=== PATIENT | male | born 1980 | race Caucasian/White ===

== ENCOUNTER 2020-08-14 06:23 | Outpatient (CLI) | payer BC, SELFPAY ==
--- NOTE | 2020-09-25 14:25 | WPDHOMESLEEP ---
Sleep Study - Home Unattended Date of Study: 08/14/20 Ordering Provider: SEN Araujo Interpreting Physician: Julieta Cast MD Home Sleep Study Type: Apnea Link Air Height: 1.85 m Weight: 127.006 kg Body Mass Index: 36.9 Neck Circumference (inches): 19.75 [place]: 10 Reason for Sleep Study Hypersomnia Sleep History Yunier Lozada is a 40 year old man with worsening snoring. He has also been told he has witnessed apneas. 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 He has a difficult time waking in the morning. His snoring is constantly loud enough that others complain about it. He occasionally awakens at night with heartburn, belching or coughing. He frequently awakens from sleep feeling short of breath. He occasionally has trouble sleeping with a cold. He occasionally wakes up gasping for breath during the night. He rarely has breathing problems at night observed by others. He rarely sweats excessively at night, rarely notices his heart pounding or beating irregularly at night. he rarely falls asleep during the day, rarely involuntarily, never while driving. He does not fall asleep while exerting physical effort. He does not have loss of muscle tone was strong emotion. He rarely has daytime difficulties due to excessive sleepiness. He rarely feels paralyzed on waking or falling asleep. He occasionally has vivid dreamlike scenes upon awakening or falling asleep. He is not afraid to go to sleep. He rarely has nightmares. He rarely remembers his dreams. He occasionally has racing thoughts. He rarely feels sad, depressed, or anxious. he rarely has muscular tension, rarely notices parts of his body jerking. He occasionally kicks at night. He rarely has crawling and aching feelings in his legs. He rarely has leg pain at night. He denies morning jaw pain. He rarely grinds his teeth at night. He occasionally has bothered by pain during the day. He rarely is awakened by pain at night. He occasionally wakes up feeling stiff in the morning. He rarely wakes up with sore or achy muscles. He occasionally wakes up with pain in the neck and spine. He has fatigue, feelings of panic, sexual problems, bowel disturbances and feels tense often. He wakes with morning headaches often. He had a CBC Sep 14, 2019 showing elevated hemoglobin 18.3 g/dL which suggests nighttime hypoxemia. Normal bedtime is between 9:00 p.m. and 10:00 p.m. He falls asleep instantly. He wakes up 1-3 times at night. While awake, he urinates and smokes a cigarette. He stays awake between 5 and 20 minutes. He wakes in the morning at 5:30 a.m.. On weekends, he may stay awake longer, going to bed between 10 and 11:00 p.m. and waking around 7:00 a.m.. He does not usually take naps. A short 10-15 minute nap is not refreshing. He is usually drowsy in the morning for 1 hour or longer. Habits: Tobacco 2 packs per day. Caffeine 12 oz per day. alcohol 6 per day. No recreational drugs. [facility] Past Medical History Medical History (Updated 09/25/20 @ 14:48 by Julieta Cast MD) Alcohol abuse Heartburn Hypertension Seasonal allergies Shortness of Breath Surgical History Surgical History (Updated 09/05/19 @ 10:28 by Kecia West [facility]) History of appendectomy Family History Family History (Updated 11/30/18 @ 15:24 by DOCTOR UNKNOWN) Mother Family history of malignant neoplasm Social History Social History (Updated 09/25/20 @ 14:41 by Julieta Cast MD) Smoking packs per day: 2 Smoking cigarettes per day: 40.0 Smoking status: Current every day smoker Alcohol intake: current Alcohol use details: 6 per day Substance use: never Medications Home Medications Medication Instructions Recorded Confirmed Type No Home Medications 07/24/20 History Medications: Testosterone injections started September 2019 Sleep Procedure This test was performed using 4 channel monitoring including res
[2020-09-25 14:32] VITALS: BMI 36.9
== END 2020-08-14 08:25 | disposition home or self-care (01) ==
LOC: ANHCSM 09-10 06:23
PROVIDERS: PCP Internal Medicine; Visit Provider Clinical Nurse Specialist
DX: G47.10 Hypersomnia, unspecified (principal); G47.33 Obstructive sleep apnea (adult) (pediatric)
CPT/HCPCS: 95806

== ENCOUNTER 2020-12-24 07:56 | Outpatient (CLI) | payer BC, SELFPAY | END 2020-12-24 07:57 | disposition home or self-care (01) | LOC: ANHCOVIDVC 07:57 | PROVIDERS: PCP Internal Medicine | DX: Z23 Encounter for immunization (principal) | CPT/HCPCS: 0001A; 91300 ==

== ENCOUNTER 2021-01-14 08:15 | Outpatient (CLI) | payer BC, SELFPAY | END 2021-01-14 08:16 | disposition home or self-care (01) | LOC: ANHCOVIDVC 08:15 | PROVIDERS: PCP Internal Medicine | DX: Z23 Encounter for immunization (principal) | CPT/HCPCS: 0002A; 91300 ==

== ENCOUNTER 2021-01-30 11:20 | Emergency (ER) | payer BC, SELFPAY ==
--- NOTE | ~2021-01-30 | XR_ITS ---
EXAMINATION: XR chest 1V portable DATE: 01/30/2021 12:05 INDICATION: Cough. TECHNIQUE: A single frontal view of the chest was obtained on 2 radiographs. COMPARISON: None. FINDINGS: The chest demonstrates clear lungs without pneumonia, pleural effusion, or pneumothorax. Th e heart size is normal. IMPRESSION: 1. No acute cardiopulmonary disease. Reviewed, dictated and finalized at location B.
[2021-01-30 11:32] VITALS: BP 150/80; PULSE 87; RESP 18; TEMP 36.2; O2SAT 98
[2021-01-30 12:01] VITALS: O2SAT 98
--- NOTE | 2021-01-30 12:10 | ED.URI ---
HPI - URI/Sore Throat General Chief Complaint: Upper Respiratory Infection Stated Complaint: Dr sent for chest screen Time Seen by Provider: 01/30/21 12:08 Source: patient Mode of arrival: ambulatory Limitations: no limitations History of Present Illness HPI Narrative: Patient is a 40-year-old male with a history of hypertension who presents for evaluation of continued cough with increased sputum production. He states that he has been feeling unwell over the past 3 weeks. He was initially diagnosed with sinusitis by Dr. Vicente with ENT who placed the patient on amoxicillin. After the patient failed to improve the patient was then switched to cefdinir by his primary care physician Dr. Sandhu. Patient finished his course of cefdinir and continues to feel unwell with productive cough and shortness of breath as well as wheezing. He reports myalgias and chills. At times he reports hot flashes. He denies weight loss. No history of cancer. He denies ever being diagnosed with COPD. He has a 2 pack/day smoker. He denies any drug use. No chest pain. Pt recently completed second vaccination. Related Data Home Medications Medication Instructions Recorded Confirmed testosterone cypionate 100 mg/mL 50 mg IM ONCE 11/27/20 11/27/20 intramuscular oil triamcinolone acetonide 55 mcg 1 spray INTRANASAL DAILY 11/27/20 11/27/20 nasal spray aerosol Allergies Allergy/AdvReac Type Severity Reaction Status Date / Time No Known Allergies Allergy Verified 01/30/21 11:34 Review of Systems Review of Systems: Narrative: CONSTITUTIONAL: Denies fever, reports chills and diaphoresis EYES: Denies visual changes, redness, or discharge. ENT: Reports rhinorrhea, congestion, reports left ear otalgia CARDIOVASCULAR: Denies chest pain, palpitations, or edema. RESPIRATORY: Reports cough and shortness of breath GASTROINTESTINAL: Denies abdominal pain, nausea, vomiting, or diarrhea. GENITOURINARY: Denies dysuria or hematuria. SKIN: Denies rash or itching. MUSCULOSKELETAL: Denies back pain, joint pain, reports myalgias NEUROLOGIC: Denies headache, numbness, or weakness. [facility] Past Medical History Medical History Abnormal fasting glucose Acute non-recurrent maxillary sinusitis Alcohol abuse Alcoholism BMI 36.0-36.9,adult Elevated blood pressure reading Elevated homocysteine Erectile dysfunction Heartburn Hemosiderin pigmentation of skin Hypertension Hypogonadism male Leukocytosis Mixed hyperlipidemia Polycythemia Screening for lipoid disorders Screening for metabolic disorder Seasonal allergic rhinitis Seasonal allergies Snoring Tobacco use disorder, continuous Surgical History Surgical History History of appendectomy Family History Family History Mother Family history of malignant neoplasm Grandparent Cancer Grandparent Cerebrovascular accident Grandparent Cancer Emphysema lung Social History Social History Smoking packs per day: 2 Smoking cigarettes per day: 40.0 Smoking status: Current every day smoker ( 2 packs per day for 25 years with no intention of quitting) Tobacco type: cigarettes Alcohol intake: current Drinks per week: 28 Substance use: never Substance use type: does not use Exam Narrative: Exam Narrative: GENERAL: Awake, alert, conversant HEAD: Normocephalic, atraumatic. EYES: PERRLA and EOMI. ENT: Nares clear, no rhinorrhea or epistaxis. Mucous membranes moist. Tympanic membranes are clear bilaterally without exudate. There is a small effusion in the left ear without bulging or purulence. NECK: Supple. CHEST: No respiratory distress, breathing even and non labored, patient with bilateral expiratory wheezing, coarse breath sounds upper and lower l
[2021-01-30] MEDS: ALBUTEROL SULFATE NEB 2.5 MG/0.5 ML INH 5 MG INHALATION (13:05)
[2021-01-30] MEDS: DEXAMETHASONE SOD PHOS INJ 4 MG/ML VIAL 10 MG PO (13:06)
[2021-01-30 13:08] VITALS: PULSE 69; RESP 18
[2021-01-30 13:43] LABS: Basophils Absolute Auto 0.1 K/mm3 (0.0-0.1); Basophils Percent Auto 0.9 % (0.2-1.2); Eosinophils Absolute Auto 0.1 K/mm3 (0-0.3); Eosinophils Percent Auto 0.6 % (0-4.4); Hematocrit 53.7 % (42.0-52.0); Hemoglobin 17.9 g/dL (14.0-18.0); Immature Granulocyte Absolute 0.06 K/mm3 (0.00-0.031); Immature Granulocyte Percent A 0.5 % (0-0.5); Lymphocytes Percent Auto 16.8 % (18.3-44.2); Mean Corpuscular HGB Conc 33.3 g/dl (32-36); Mean Corpuscular Hemoglobin 32.1 pg (26-34); Mean Corpuscular Volume 96.4 fl (80-100); Mean Platelet Volume 9.3 fl (7.4-10.4); Monocytes Absolute Auto 0.8 K/mm3 (0.1-0.6); Monocytes Percent Auto 6.2 % (2.6-8.5); Neutrophils Absolute Auto 9.8 K/mm3 (1.3-6.7); Platelet Count Result 315 k/mm3 (150-375); Red Blood Count 5.57 M/mm3 (4.6-6.20); Red Cell Distribution Width 13.2 % (11.5-14.5); White Blood Count 13.1 K/mm3 (4.5-10.0)
[2021-01-30 13:53] LABS: Alanine Aminotransferase 57 U/L (4-50); Albumin Level 4.4 g/dL (3.5-5.1); Alkaline Phosphatase 78 U/L (38-126); Anion Gap 4 mmol/L (8-16); Aspartate Amino Transferase 48 U/L (17-59); Bilirubin,Total 0.6 mg/dL (0.2-1.3); Blood Urea Nitrogen 16 mg/dL (9-20); Calcium 9.5 mg/dL (8.4-10.2); Carbon Dioxide 34 mmol/L (22-30); Chloride 102 mmol/L (98-107); Estimated CRCL calculation 110 ml/min; Estimated Glomerular Filt Rate > 60; Glucose 114 mg/dL (75-110); Potassium 4.7 mmol/L (3.4-5.0); Sodium 140 mmol/L (137-145)
[2021-01-30 14:01] VITALS: BP 137/87; PULSE 74; RESP 20; O2SAT 100
[2021-01-31 16:11] LABS: SARS-CoV-2 RNA PCR Negative
== END 2021-01-30 14:22 | disposition home or self-care (01) ==
PROVIDERS: Emergency Provider Emergency Medicine; PCP Family Medicine
DX: J40 Bronchitis, not specified as acute or chronic (principal); R06.2 Wheezing; Z20.822 Contact with and (suspected) exposure to COVID-19; R12 Heartburn; I10 Essential (primary) hypertension; E78.2 Mixed hyperlipidemia; F17.210 Nicotine dependence, cigarettes, uncomplicated
CPT/HCPCS: 36415; 71045; 80053; 85025; 94640; 99283; C9803; J1100; U0003; U0005

== ENCOUNTER 2021-02-12 14:57 | Outpatient (CLI) | payer BC, SELFPAY ==
--- NOTE | ~2021-02-12 | CT_ITS ---
EXAMINATION: CT sinus wo con DATE: 02/12/2021 15:13 INDICATION: Chronic sinusitis TECHNIQUE: Computed tomography (CT) of the paranasal sinuses was performed without intravenous contra st. The dose-length product was 299.51 mGy-cm. Automated exposure control and iterative reconstructio n technique were employed. COMPARISON: None FINDINGS: There is mucosal thickening of the maxillary and ethmoid sinuses. There is bilateral mastoi d effusions. Leftward nasal septal deviation. Ostiomeatal units are patent. No significant mucoperios teal reaction. IMPRESSION: 1. Moderate sinus disease primarily involving the maxillary sinuses. 2: Bilateral mastoid effusions. Reviewed, dictated and finalized at location A.
== END 2021-02-12 14:58 | disposition home or self-care (01) ==
LOC: ANHIMG 14:58
PROVIDERS: PCP Family Medicine; Visit Provider Family Medicine
DX: J32.9 Chronic sinusitis, unspecified (principal)
CPT/HCPCS: 70486

== ENCOUNTER → 2021-07-15 12:42 | Outpatient (CLI) | payer BC, SELFPAY ==
--- NOTE | ~2021-07-15 | US_ITS ---
EXAMINATION: US scrotum doppler EXAM DATE: 07/15/2021 13:05 INDICATION: Male hypogonadism. TECHNIQUE: Multiple grayscale and Doppler images of the testicles and scrotum were obtained bilateral ly. There is no prior study for comparison. FINDINGS: Right testicle measures 4.6 x 2.1 x 2.8 cm and is morphologically normal. Low resistance Doppler victor hugo w confirmed. There is no epididymal head cyst measuring 1 cm, another measuring 3 mm. There is no hy drocele or varicocele. Left testicle measures 4.5 x 2.0 x 2.7 cm and is morphologically normal. Low resistance Doppler flow confirmed. The epididymis is unremarkable. There is no hydrocele or varicocele. IMPRESSION: Unremarkable testicular/scrotal ultrasound exam. Reviewed, dictated and finalized at location A. 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
== END ==
PROVIDERS: PCP Family Medicine; Visit Provider Internal Medicine Endocrinology, Diabetes & Metabolism
DX: E29.1 Testicular hypofunction (principal)
CPT/HCPCS: 76870; 93976

== ENCOUNTER 2021-07-18 13:26 | Outpatient (CLI) | payer BC, SELFPAY ==
--- NOTE | 2021-07-18 13:30 | ECG_ITS ---
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
== END 2021-07-18 13:27 | disposition home or self-care (01) ==
LOC: ANHSURGERY 13:29
PROVIDERS: PCP Family Medicine; Visit Provider Otolaryngology
DX: F17.210 Nicotine dependence, cigarettes, uncomplicated (principal); R94.31 Abnormal electrocardiogram [ECG] [EKG]
CPT/HCPCS: 93005

== ENCOUNTER 2021-07-18 14:26 | Emergency (ER) | payer BC, SELFPAY ==
[2021-07-18] VITALS (18 sets, daily range): BP systolic 126–175; BP diastolic 82–103; PULSE 77–893; RESP 14–31; TEMP 37; O2SAT 94–99
--- NOTE | ~2021-07-18 | XR_ITS ---
XR chest 2V 07/18/2021 14:50 Indication: Chest pain Procedure: 2 view chest Comparison: 01/30/2021 Findings: Borderline heart size. Mild interstitial edema. No pleural effusion or pneumothorax. Impression: 1: Mild interstitial edema. Reviewed, dictated and finalized at location A. 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
--- NOTE | 2021-07-18 14:39 | ECG_ITS ---
Measurements Intervals [place] Rate: 86 P: 12 PA: 153 QRS: 91 QRSD: 99 T: 6 QT: 332 QTc: 399 Interpretive Statements SINUS RHYTHM RIGHT AXIS DEVIATION DELAYED PRECORDIAL R/S TRANSITION BORDERLINE ST-T WAVE ABNORMALITY- INFERIOR LEADS BORDERLINE ECG Electronically Signed On 07-18-2021 18:38:03 DIRECTOR CHECK by Teodoro Sevilla D.O.
--- NOTE | 2021-07-18 16:00 | ED.GENADULT ---
HPI - General Adult General Chief complaint: Chest Pain Stated complaint: hypertension Time Seen by Provider: 07/18/21 15:59 History of Present Illness HPI narrative: Patient is a 40-year-old male with a history of KVNG, low testosterone who comes to the ED today at the recommendation of his primary care doctor because his blood pressure was elevated in her office. She is on pressure of what the reading was but notes that it was recently checked and was in the 190s systolically. He does not have a known diagnosis of hypertension and is not on any medications for this. He has numerous complaints. He has been having frontal headaches intermittently for the last several weeks, tingling all over his body intermittently for the last several weeks. He notes that he is having dyspnea on exertion and feeling fatigued. He has chest aggravation occasionally and admits to lower extremity edema. He has been on a low testosterone supplement for quite some time now. Notes that he is establishing care with a new primary care doctor, lab work was done recently which showed several different blood counts were elevated and he was referred to a health it specialist. Related Data Home Medications Medication Instructions Recorded Confirmed triamcinolone acetonide 55 mcg 1 spray INTRANASAL . b.i.d. ml 02/06/21 07/17/21 nasal spray aerosol testosterone cypionate 200 mg IM . twice weekly 07/17/21 07/17/21 Allergies Allergy/AdvReac Type Severity Reaction Status Date / Time No Known Allergies Allergy Verified 07/18/21 16:32 Review of Systems Constitutional: Constitutional: Reports as per HPI, Denies fever(s), Denies night sweats and Denies weakness Cardiovascular: Cardiovascular: Reports as per HPI, Reports chest pain, Denies edema, Denies leg edema, Denies dyspnea and Denies orthopnea Respiratory: Respiratory: Denies cough and Reports dyspnea Gastrointestinal: Gastrointestinal: Denies abdominal pain, Denies constipation, Denies diarrhea, Denies nausea and Denies vomiting Musculoskeletal: Musculoskeletal: Denies abnormal gait, Denies back pain, Denies numbness and Denies tingling Neurologic: Denies Abnormal speech present, Denies abnormal gait, Reports headache(s), Denies numbness, Denies tingling and Denies weakness Psychiatric: Psychiatric: Denies homicidal ideation and Denies suicidal ideation Hematologic/Lymphatic: Hematologic/Lymphatic: Reports as per HPI [facility] Past Medical History Medical History (Updated 07/18/21 @ 19:23 by Bin Parisi PA-C) Abnormal fasting glucose Fasting glucose 104 with hemoglobin A1c 5.7 on 05/09/2021 Acute bronchitis Acute non-recurrent maxillary sinusitis Alcohol abuse Alcoholism BMI 36.0-36.9,adult BMI 37.0-37.9, adult Chronic depression (~07/18/21) Elevated blood pressure reading Elevated homocysteine Erectile dysfunction Heartburn Hemosiderin pigmentation of skin total iron normal at 94 with 21% saturation and ferritin normal at 80 Hypertension Hypogonadism male total testosterone 810 with free testosterone 23.1 on 05/09/2021 with DHEAS elevated at 494 Leukocytosis Mixed hyperlipidemia total cholesterol 231, triglycerides 301, HDL 26 and LDL 149 on 05/09/2021 Polycythemia hemoglobin 19.8 on 05/09/2021 Recurrent sinusitis Screening for lipoid disorders Screening for metabolic disorder Seasonal allergic rhinitis Seasonal allergies Snoring Tobacco use disorder, continuous Surgical History Surgical History History of appendectomy Family History Family History Mother Family history of malignant neoplasm Grandparent Cancer Grandparent Cerebrovascular accident Grandparent Cancer Emphysema lung Social History Social History Smoking packs per day: 2 Smoking cigarettes per day: 40.0 Year
--- NOTE | 2021-07-18 16:54 | PC.NURSE ---
Clarified with JIMY Childress. No need for aspirin at this time
[2021-07-18 17:01] LABS: Basophils Absolute Auto 0.2 K/mm3 (0.0-0.1); Basophils Percent Auto 1.1 % (0.2-1.2); Eosinophils Absolute Auto 0.3 K/mm3 (0-0.3); Hematocrit 58.5 % (42.0-52.0); Hemoglobin 20.3 g/dL (14.0-18.0); Immature Granulocyte Absolute 0.06 K/mm3 (0.00-0.031); Immature Granulocyte Percent A 0.4 % (0-0.5); Lymphocytes Absolute Auto 3.55 K/mm3 (0.9-3.2); Lymphocytes Percent Auto 23.8 % (18.3-44.2); Mean Corpuscular HGB Conc 34.7 g/dl (32-36); Mean Corpuscular Hemoglobin 33.2 pg (26-34); Mean Corpuscular Volume 95.7 fl (80-100); Mean Platelet Volume 9.5 fl (7.4-10.4); Monocytes Absolute Auto 1.5 K/mm3 (0.1-0.6); Monocytes Percent Auto 10.3 % (2.6-8.5); Neutrophils Absolute Auto 9.3 K/mm3 (1.3-6.7); Neutrophils Percent Auto 62.4 % (45.5-73.1); Platelet Count Result 238 k/mm3 (150-375); Red Blood Count 6.11 M/mm3 (4.6-6.20); Red Cell Distribution Width 14.9 % (11.5-14.5); White Blood Count 14.9 K/mm3 (4.5-10.0)
--- NOTE | 2021-07-18 17:08 | PC.NURSE ---
Called lab to add on D-dimer and BNP
[2021-07-18 17:11] LABS: INR 0.9; Partial Thromboplastin Time 28.1 SECONDS (22.3-36.8); Prothrombin Time 12.5 Seconds (11.1-14.7)
[2021-07-18 17:18] LABS: Anion Gap 9 mmol/L (8-16); Blood Urea Nitrogen 8 mg/dL (9-20); Calcium 9.7 mg/dL (8.4-10.2); Carbon Dioxide 30 mmol/L (22-30); Chloride 99 mmol/L (98-107); Estimated CRCL calculation 135 ml/min; Estimated Glomerular Filt Rate > 60; Glucose 107 mg/dL (65-110); Potassium 4.1 mmol/L (3.4-5.0); Sodium 138 mmol/L (137-145)
[2021-07-18 17:30] LABS: Troponin I < 0.012 ng/mL (0.000-0.034)
[2021-07-18 17:37] LABS: NT Pro B Type Natriuretic Pept 15 pg/mL (5-100)
[2021-07-18 17:55] LABS: D Dimer 0.25 ug/mL (<0.48)
[2021-07-18] MEDS: ACETAMINOPHEN 325 MG TABLET 650 MG PO (18:06)
[2021-07-18 18:14] LABS: Troponin I < 0.012 ng/mL (0.000-0.034)
--- NOTE | 2021-07-18 18:17 | PC.NURSE ---
Pt instructed to avoid NSAIDs for surgery on Wednesday, PA [place] aware, cancelled toradol.
== END 2021-07-18 19:45 | disposition home or self-care (01) ==
PROVIDERS: Physician Assistant Medical; Emergency Provider Emergency Medicine; PCP Family Medicine
DX: R07.9 Chest pain, unspecified (principal); R03.0 Elevated blood-pressure reading, without diagnosis of hypertension; R06.02 Shortness of breath; R51.9 Headache, unspecified; G47.33 Obstructive sleep apnea (adult) (pediatric); F32.A Depression, unspecified; E78.2 Mixed hyperlipidemia; F17.210 Nicotine dependence, cigarettes, uncomplicated; Z87.09 Personal history of other diseases of the respiratory system
CPT/HCPCS: 36415; 71046; 80048; 83880; 84484; 85025; 85380; 85610; 85730; 93005; 99284; A9270

== ENCOUNTER 2021-07-21 00:29 | Day surgery (SDC) | payer BC, SELFPAY ==
[2021-07-17 14:43] VITALS: BMI 38.4
--- NOTE | 2021-07-17 15:01 | PC.NURSE ---
Addendum entered by Cassidy Mejía RN 07/17/21 15:38: PT TO STOP TAKING IBUPROFEN PER DR. CEDILLO'S INSTRUCTIONS Original Note: Report to the Outpatient Waiting Room, entrance under the [facility] located off [facility], at time 7:00 on date 07/21/21. OR Time: 9:00. - You and your visitor will be asked a series of questions to screen for COVID 19 for your protection. - A mask is required within the hospital. - Only one visitor is allowed at this time. Patient visitors will be guided where to wait when not with patient. Preoperative COVID Testing Requirements: No COVID Test needed if: (proof is required; if not received patient will have Rapid Test prior to entry) - Patient has received COVID Vaccine at least 14 days prior to procedure date or - Patient has positive COVID test result within last 90 days of surgery date. COVID Test needed if above criteria is not met If not COVID vaccinated a COVID test must be conducted within 72 hours of surgery and patient is asked to isolate self from time of testing until procedure. You will go to the [facility] for your COVID testing. The [facility] site is located at the corner of [address] [facility]. You will only be called if COVID results are positive and your surgeon may reschedule your elective surgery date. Patients may have clear liquids (water, carbonated beverages, clear teas, apple juice) until 3 hours prior to surgery with a maximum of 20 ounces. - No food from midnight until time of surgery - Infants may have breast milk until 4 hours before surgery, formula 6 hours prior to surgery. - Children will be allowed to drink immediately following surgery. If applicable, please bring a bottle or sippy cup to assist with drinking. Juice, water, soda, and popsicles are readily available. For infants on formula, please bring formula the day of surgery. Pacifiers are allowed. Take the following medications with a SIP of water the morning of surgery: INHALER (IF NEEDED, AND BRING WITH YOU) Medications to discontinue per physician: N/A Date to take last dose: N/A Please no make-up, nail amharic, hairspray, perfume, deodorant, or body powder the day of surgery. No jewelry (including any body piercings) or valuables the day of surgery, leave them at home. Please take a shower or bath the night before, or the morning of, surgery with an antibacterial soap. Wear comfortable, loose fitting clothing. Children are encouraged to wear pajamas. - Jewelry must be removed prior to entering the operating room. Rings and piercings that are not removed may be cut off. - The hospital will not accept responsibility for valuables. - Please leave all valuables, including medications, at home the day of surgery. If you are going home after surgery, a licensed catering driver must drive you home. - NO public transportation without another adult. - We recommend that an adult stay with you for 24 hours following discharge. - We also recommend that you do not drive, make important decision, drink alcoholic beverages, or take any drugs that were not prescribed by your health care provider for at least 24 hours after your discharge time. For Pediatric surgeries, we recommend two adults accompany the child home (only one inside the building at this time). Follow any additional instructions given to you from your surgeon. Telephone instructions given to KANDACE CHING and asked if any additional questions and then verbalized understanding. Patient advised to call surgeon office or pre surgery nurse liaison [phone] if any additional questions.
[2021-07-21] VITALS (11 sets, daily range): BP systolic 136–185; BP diastolic 79–100; PULSE 93–103; RESP 12–20; TEMP 36.5; O2SAT 90–98; BMI 38.7
--- NOTE | 2021-07-21 07:49 | WPDANESEPPF ---
Anes - Initial Pre Proc Eval Procedure: Operation Date: 07/21/21 09:00 Proposed Procedures p Septoplasty - Omar Vicente MD s Bilateral Ethmoidectomy, Bilateral Maxillary Antrostomy, Bilateral Turbinate Reduction - Omar Vicente MD Date/Time: 07/21/21 07:49 Surgeon: Omar Vicente MD Pre Op Diagnosis: Chronic Sinusitis Patient Data Age: 40 Gender: M Height: 1.85 m Weight: 132 kg Allergies Allergy/AdvReac Type Severity Reaction Status Date / Time No Known Allergies Allergy Verified 07/21/21 07:37 Home Medications Medication Instructions Recorded Confirmed Type acetaminophen 500 mg PO Q6H PRN #30 cap 01/30/21 07/17/21 Rx ibuprofen 400 mg PO TID PRN 10 Days #30 01/30/21 07/17/21 Rx tablet triamcinolone acetonide 55 mcg 1 spray INTRANASAL . b.i.d. ml 02/06/21 07/21/21 History nasal spray aerosol sildenafil 100 mg tablet 100 mg PO DAILY PRN #90 tablet 04/29/21 07/17/21 Rx albuterol sulfate 90 mcg/actuation 2 inh INHALATION QID PRN #8.5 g 07/17/21 Rx aerosol inhaler testosterone cypionate 200 mg IM . twice weekly 07/17/21 07/17/21 History bupropion HCl 150 mg 24 hr tablet, 150 mg PO QAM #30 tablet 07/18/21 Rx extended release Patient hx anesthesia problems: none Family hx anesthesia problems: none Results Review: All pre-operative results and documents have been reviewed as part of the pre-operative evaluation. [facility] Past Medical History Medical History Abnormal fasting glucose Fasting glucose 104 with hemoglobin A1c 5.7 on 05/09/2021 Acute bronchitis Acute non-recurrent maxillary sinusitis Alcohol abuse Alcoholism BMI 36.0-36.9,adult BMI 37.0-37.9, adult Chronic depression (~07/18/21) Elevated blood pressure reading Elevated homocysteine Erectile dysfunction Heartburn Hemosiderin pigmentation of skin total iron normal at 94 with 21% saturation and ferritin normal at 80 Hypertension Hypogonadism male total testosterone 810 with free testosterone 23.1 on 05/09/2021 with DHEAS elevated at 494 Leukocytosis Mixed hyperlipidemia total cholesterol 231, triglycerides 301, HDL 26 and LDL 149 on 05/09/2021 Polycythemia hemoglobin 19.8 on 05/09/2021 Recurrent sinusitis Screening for lipoid disorders Screening for metabolic disorder Seasonal allergic rhinitis Seasonal allergies Snoring Tobacco use disorder, continuous Surgical History Surgical History History of appendectomy Family History Family History Mother Family history of malignant neoplasm Grandparent Cancer Grandparent Cerebrovascular accident Grandparent Cancer Emphysema lung Social History Social History Smoking packs per day: 2 Smoking cigarettes per day: 40.0 Years smoked: 25 Smoking pack-years: 50.00 Smoking status: Current every day smoker Tobacco type: cigarettes Alcohol intake: current Drinks per week: 42 Alcohol use details: 6 TIMI AND SKI PER NIGHT Substance use: never Substance use type: does not use Living arrangements: with family Spiritual care concerns: No Anes - Eval Final PreProcedure Day of Procedure 07/21/21 07:49 Patient weight: obese Heart: regular rate and rhythm Lungs: clear to auscultation Airway: Mallampati scale class II Neurological: alert and oriented Last oral intake: >/= 8 hours ASA classification: III Emergent: no Anesthetic plan: proceed Anesthesia type and monitoring: general ETT and standard monitoring Results Review: All pre-operative results and documents have been reviewed as part of the pre-operative evaluation. Informed Consent: The patient's anesthetic plan and its attendant risks and benefits were discussed with the patient/family/POA. Questions were solicited and answers provided to the s
[2021-07-21] MEDS: LACTATED RINGERS 1,000 ML 30 ML IV CONT ×2 (07:57→10:05)
[2021-07-21] MEDS: ACETAMINOPHEN 500 MG TABLET 1000 MG PO (07:58)
[2021-07-21] MEDS: OXYMETAZOLINE HCL 0.05% NAS 15 ML BTL (*BKC) 1 SPRAY NASAL (07:58)
--- NOTE | 2021-07-21 08:00 | PM.IMHP ---
H&P: HPI History of Present Illness Date/Time: 07/21/21 08:00 Chief Complaint: sinusitis, deviated septum Narrative: Chronic sinusitis, deviated septum Review of Systems Review of Systems: All systems reviewed & are unremarkable except as noted in HPI and below [facility] Past Medical History Medical History Abnormal fasting glucose Fasting glucose 104 with hemoglobin A1c 5.7 on 05/09/2021 Acute bronchitis Acute non-recurrent maxillary sinusitis Alcohol abuse Alcoholism BMI 36.0-36.9,adult BMI 37.0-37.9, adult Chronic depression (~07/18/21) Elevated blood pressure reading Elevated homocysteine Erectile dysfunction Heartburn Hemosiderin pigmentation of skin total iron normal at 94 with 21% saturation and ferritin normal at 80 Hypertension Hypogonadism male total testosterone 810 with free testosterone 23.1 on 05/09/2021 with DHEAS elevated at 494 Leukocytosis Mixed hyperlipidemia total cholesterol 231, triglycerides 301, HDL 26 and LDL 149 on 05/09/2021 Polycythemia hemoglobin 19.8 on 05/09/2021 Recurrent sinusitis Screening for lipoid disorders Screening for metabolic disorder Seasonal allergic rhinitis Seasonal allergies Snoring Tobacco use disorder, continuous Surgical History Surgical History History of appendectomy Family History Family History Mother Family history of malignant neoplasm Grandparent Cancer Grandparent Cerebrovascular accident Grandparent Cancer Emphysema lung Social History Social History Smoking packs per day: 2 Smoking cigarettes per day: 40.0 Years smoked: 25 Smoking pack-years: 50.00 Smoking status: Current every day smoker Tobacco type: cigarettes Alcohol intake: current Drinks per week: 42 Alcohol use details: 6 TIMI AND SKI PER NIGHT Substance use: never Substance use type: does not use Living arrangements: with family Spiritual care concerns: No Meds Home Medications and Allergies Home Medications Medication Instructions Recorded Confirmed Type acetaminophen 500 mg PO Q6H PRN #30 cap 01/30/21 07/17/21 Rx ibuprofen 400 mg PO TID PRN 10 Days #30 01/30/21 07/17/21 Rx tablet triamcinolone acetonide 55 mcg 1 spray INTRANASAL . b.i.d. ml 02/06/21 07/21/21 History nasal spray aerosol sildenafil 100 mg tablet 100 mg PO DAILY PRN #90 tablet 04/29/21 07/17/21 Rx albuterol sulfate 90 mcg/actuation 2 inh INHALATION QID PRN #8.5 g 07/17/21 Rx aerosol inhaler testosterone cypionate 200 mg IM . twice weekly 07/17/21 07/17/21 History bupropion HCl 150 mg 24 hr tablet, 150 mg PO QAM #30 tablet 07/18/21 Rx extended release Allergies Allergy/AdvReac Type Severity Reaction Status Date / Time No Known Allergies Allergy Verified 07/21/21 07:37 Exam Narrative: Left septal deviation, chronic sinusitis bilateral maxillary and ethmoid sinuses. Rest of exam wnl Assessment and Plan Assessment and plan (1) Recurrent sinusitis: Code(s): J32.9 - Chronic sinusitis, unspecified Status: Acute Assessment and Plan: Yunier is here for septoplasty, turbinoplasty, bilateral maxillary antrostomy and ethmoidectomy. r/b/a reviewed, pt understands and agrees to surgery, refer to outpt H&P for full details. No changes in H&P since last seen. (2) Deviated nasal septum: Code(s): J34.2 - Deviated nasal septum Status: Acute
--- NOTE | 2021-07-21 08:02 | WPDHPUPDATE1 ---
History and Physical Update Update Date/Time: 07/21/21 08:02 History and Physical has been reviewed, including an updated exam of the patient. There are NO changes in the patient's condition. Risks, benefits, and alternatives have been discussed and questions answered. Patient agrees to proceed with procedure.
[2021-07-21] MEDS: ceFAZolin 3 GM/D5W 100 ML 100 ML IVPB (08:28)
[2021-07-21] MEDS: LIDO 1%/EPINEPHRINE 1:100,000 50 ML VIAL INFILTRATE (08:55)
--- NOTE | 2021-07-21 09:49 | W.PM.PROC2 ---
Procedure Note - Detailed Date of Procedure 07/21/21 Pre-op Diagnosis Chronic Sinusitis, deviated septum Post-op Diagnosis same Procedure Performed Septoplasty, bilateral inferior turbinoplasty, bilateral maxillary antrostomy, bilateral total ethmoidectomy Surgeon Omar Vicente MD Anesthesia general Indications chronic sinusitis, deviated septum Findings right septal deviation, bilateral chronic sinusitis Description of Procedure On the date of procedure the patient was met in the preoperative area and risk and benefits of the procedure reviewed with the patient as documented in the H&P and they elected to proceed with surgery. Patient was brought back to the operating room by the anesthesia team and underwent general endotracheal anesthesia. Once an adequate plane of anesthesia was obtained a timeout was performed to assure the patient identification the patient here to be performed were correct. They were.The patient was then prepped and draped in the normal fashion for endoscopic sinus surgery. No image guidance used due to shortage of [employer] trackers. Afrin-soaked pledgets were placed in the nasal cavities bilaterally. The entire case was performed under endoscopic visualization. The right side was narrowed due to septal deviation.? Thus, septoplasty was required.? A left hemitransfixion incision was made in the left caudal septum and a mucoperichondrial flap was elevated in the usual fashion. The flap was elevated under endoscopic visualization and the remainder of the case was performed with endoscopic assistance. Using a D-knife, an incision was made through the cartilaginous septum with care to preserve the appropriate caudal and dorsal ?L-strut? of cartilage. The cartilage was then disarticulated from the bony-cartilaginous junction and the deviated cartilage was removed. Further deviated bone and cartilage was removed from the maxillary crest and posterior bony septum with care to avoid injury to the mucoperichondrial flap using a combination of dissection and Scar-Artur forceps. Once this was completed, the hemitransfixion incision was closed using simple interrupted 4-0 chromic suture. A quilting stitch to reapproximate the mucoperichondrial flaps was then placed using 4-0 plain gut suture on a Frantz needle. 1% lidocaine with 1:100,000 epinephrine was then injected into the root of the middle turbinate and lateral nasal wall bilaterally. Attention was first directed towards the left side. The middle turbinate was medialized and the osteomeatal complex was identified with a braydne probe. Using a 90 degree backbiter, the uncinate process was reflected anteriorly and removed using a combination of sharp and powered dissection. The maxillary antrostomy was then created and widened by identifying the natural ostia and opening the sinus with straight stacie-cut forceps, backbiter, and microdebrider. Continuing with the microdebrider, the anterior ethmoid bulla was opened. Careful dissection was carried out posteriorly, through the basal lamella and posterior ethmoid cells. Using an image guided curved suction as well as J-curette, the posterior most ethmoid cell was identified and the ethmoids were bluntly fractured and dissected from posterior to anterior along the base of the skull. The remaining bone fragments were removed with appropriate curved instruments and microdebrider.? Next, the right maxillary antrostomy, and total ethmoidectomy were carried out in identical fashion.? No clinical evidence of CSF throughout the case.? With all sinuses opened, nasopore packing was placed in the ethmoid acvities bilaterally. Hemostasis was ensured. Lastly, the bilateral inferior turbinates were reduced submucosally using 2mm microdebrider and then outfractured with a sayer elevator. This significantly opened the airway. Campos splints were then placed to secure the septum in the midline.? At this point, the procedure was concluded. Care the patient was
[2021-07-21] MEDS: fentaNYL CITRATE INJ (*CRX) 100 MCG/2 ML VIAL 25 MCG IV PUSH ×2 (10:16→10:27)
[2021-07-21] MEDS: oxyCODONE HCL (*CRX) 5 MG TAB IR PO (11:45)
== END 2021-07-21 13:00 | disposition home or self-care (01) ==
PROVIDERS: PCP Family Medicine; Visit Provider Otolaryngology
PROC: (CPT 30520; principal; 2021-07-21 09:00)
PROC: (CPT 30520; 2021-07-21 09:00)
DX: J32.9 Chronic sinusitis, unspecified (principal); J34.2 Deviated nasal septum; Z79.51 Long term (current) use of inhaled steroids; F17.210 Nicotine dependence, cigarettes, uncomplicated; E78.2 Mixed hyperlipidemia; I10 Essential (primary) hypertension; F32.9 Major depressive disorder, single episode, unspecified; D75.1 Secondary polycythemia; E66.9 Obesity, unspecified; Z68.38 Body mass index [BMI] 38.0-38.9, adult
CPT/HCPCS: 30520; 30140; 31255; 31256; A9270; J0690; J2250; J2270; J3010; J7120

== ENCOUNTER 2021-09-13 08:31 | Outpatient (CLI) | payer BC, SELFPAY ==
--- NOTE | ~2021-09-13 | MR_ITS ---
EXAMINATION: MR lumbar spine wo con DATE: 09/13/2021 09:21 INDICATION: Lumbago. Right-sided sciatica. TECHNIQUE: Magnetic resonance imaging (MRI) of the lumbar spine was performed without intravenous con trast. Sequences included sagittal T2-weighted FSE, sagittal T2-weighted FS FSE, sagittal T1-weighted FSE, and axial T2-weighted FSE. COMPARISON: None FINDINGS: There is 5 mm retrolisthesis of L3 on L4 and L4 on L5.Vertebral body heights are normal. Th ere is mildly decreased disc height at L3-L4. There is severely decreased disc height at L4-L5 and L5 -S1 with endplate remodeling. Epidural lipomatosis is noted. The distal spinal cord signal intensity is normal. The conus medullaris is atL1.The following disc levels are specifically discussed: L1-L2: The disc does not extend beyond the endplate margin. There is mild bilateral facet joint osteo arthritis. There is no neural foraminal stenosis. There is no central canal stenosis. L2-L3: The disc does not extend beyond the endplate margin. There is mild right and moderate left fac et joint osteoarthritis. There is no neural foraminal stenosis. There is no central canal stenosis. L3-L4: The disc is bulging. There is mild bilateral facet joint osteoarthritis. There is mild bilater al neural foraminal stenosis. There is mild central canal stenosis. L4-L5: The disc is bulging with superimposed small central extrusion. There is mild right and moderat e left facet joint osteoarthritis. There is moderate bilateral neural foraminal stenosis. There is mi ld central canal stenosis. L5-S1: The disc is bulging and has an annular fissure. There is severe right and moderate left facet joint osteoarthritis. There is moderate bilateral neural foraminal stenosis. There is mild central ca nal stenosis. IMPRESSION: 1. Severe lower lumbar spondylosis. Reviewed, dictated and finalized at location A. 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
== END 2021-09-13 08:32 ==
PROVIDERS: PCP Family Medicine; Visit Provider Family Medicine
DX: M54.41 Lumbago with sciatica, right side (principal); G89.29 Other chronic pain; M47.896 Other spondylosis, lumbar region
CPT/HCPCS: 72148

== ENCOUNTER 2021-12-19 08:02 | Outpatient (CLI) | payer BC, SELFPAY ==
--- NOTE | ~2021-12-19 | US_ITS ---
EXAMINATION: US art doppler w kamilla PLUMMER EXAM DATE: 12/19/2021 09:30 INDICATION: I73.9 - Peripheral vascular disease, unspecified. TECHNIQUE: Segmental pressures and plethysmographic and Doppler waveforms of the brachial and lower e xtremity arteries were obtained. There is no prior study for comparison. FINDINGS: Right and left brachial artery pressures of 127 mm Hg and 135 mm Hg, respectively, are concordant (no rmal difference <= 30 mmHg). RIGHT LEG: The ankle-brachial index (RAHEEL) is 0.91 (normal >= 0.9-1). The great toe-brachial index (TBI) is 0.85 (normal >= 0.65). The lower extremity ratios, segmental pressure gradients as follows; Proximal superficial femoral artery:- (Reportedly greater than 220 mmHg). Distal superficial femoral artery: ----- 1.21 (163 mmHg). Popliteal: 1.13 (153 mmHg). Dorsalis pedis: 0.62 (84 mmHg). Posterior tibial: 0.91 (123 mmHg). (Normal gradients <= 20-30 mmHg between adjacent levels on the same leg or the same levels on the two legs). Arterial waveforms are biphasic through popliteal, monophas ic below. LEFT LEG: The ankle-brachial index (RAHEEL) is 0.96 (normal >= 0.9-1). The great toe-brachial index (TBI) is 0.91 (normal >= 0.65). The lower extremity ratios, segmental pressure gradients as follows; Proximal superficial femoral artery:- 1.29 (174 mmHg). Distal superficial femoral artery: ----- 1.33 (179 mmHg). Popliteal: 0.98 (132 mmHg). Dorsalis pedis: 0.79 (107 mmHg). Posterior tibial: 0.96 (129 mmHg). (Normal gradients <= 20-30 mmHg between adjacent levels on the same leg or the same levels on the two legs). Arterial waveforms are biphasic through popliteal, monophas ic below. IMPRESSION: 1. Right ankle-brachial index 0.91, normal. 2. Left ankle-brachial index 0.96, normal. 3. Segmental pressures as above. Reviewed, dictated and finalized at location B.
== END 2021-12-19 08:03 | disposition home or self-care (01) ==
LOC: ANHIMG 08:08
PROVIDERS: PCP Family Medicine; Visit Provider Family Medicine
DX: I73.9 Peripheral vascular disease, unspecified (principal)
CPT/HCPCS: 93923

== ENCOUNTER → 2022-01-14 17:00 | Outpatient (CLI) | payer BC, SELFPAY ==
--- NOTE | ~2022-01-14 | XR_ITS ---
XR hip RT min 3V w AP pelvis 01/14/2022 17:20 Indication: Right hip pain Procedure: AP pelvis and 3 views right hip Comparison: No prior studies for comparison. Findings: No fracture, subluxation or dislocation. Pelvic rings are intact. Sacral foramen are symmet crystal. Moderate lower lumbar spondylosis. No significant joint space narrowing of the hips. Impression: 1: No acute abnormality of the right hip. 2: Moderate lower lumbar spondylosis. Reviewed, dictated and finalized at location A. Impression: 1: No acute abnormality of the right hip. 2: Moderate lower lumbar spondylosis.
== END ==
PROVIDERS: PCP Family Medicine; Visit Provider Family Medicine
DX: M25.551 Pain in right hip (principal); M47.896 Other spondylosis, lumbar region
CPT/HCPCS: 73502

== ENCOUNTER → 2022-01-29 14:06 | Outpatient (CLI) | payer BC, SELFPAY ==
--- NOTE | ~2022-01-29 | MR_ITS ---
EXAMINATION: MR cervical spine wo con DATE: 01/29/2022 14:37 INDICATION: Spinal stenosis. TECHNIQUE: Magnetic resonance imaging (MRI) of the cervical spine was performed without intravenous c ontrast. Sequences included sagittal T2-weighted FSE, sagittal T2-weighted FS FSE, sagittal T1-weight ed FSE, axial MERGE, and axial T2-weighted FSE. COMPARISON: None FINDINGS: There is kyphosis of lower cervical spine. Vertebral body heights are normal. There is mild ly decreased disc height at C5-C6, severely decreased disc height at C6-C7, and moderately decreased disc height at C7-T1 with endplate remodeling. Osseous central spinal canal is developmentally small at C1. The spinal cord signal intensity is normal. The following disc levels are specifically discuss ed: C2-C3: The disc does not extend beyond the endplate margin. There is moderate left uncovertebral join t osteoarthritis. There is moderate right and severe left facet joint osteoarthritis. There is mild r ight and moderate left neural foraminal stenosis. There is no central canal stenosis. C3-C4: The disc does not extend beyond the endplate margin. There is mild bilateral uncovertebral eduard nt osteoarthritis. There is moderate bilateral facet joint osteoarthritis. There is mild bilateral ne ural foraminal stenosis. There is no central canal stenosis. C4-C5: The disc does not extend beyond the endplate margin. There is mild left uncovertebral joint os teoarthritis. There is moderate bilateral facet joint osteoarthritis. There is mild left neural tez inal stenosis. There is no central canal stenosis. C5-C6: The disc does not extend beyond the endplate margin. There is mild bilateral uncovertebral eduard nt osteoarthritis. There is mild right facet joint osteoarthritis. There is no neural foraminal steno sis. There is mild central canal stenosis. C6-C7: The disc is bulging. There is moderate right and severe left uncovertebral joint osteoarthriti s. There is no facet joint osteoarthritis. There is mild bilateral neural foraminal stenosis. There i s moderate central canal stenosis with ventral and dorsal indentation of the spinal cord. C7-T1: The disc is bulging. There is mild bilateral uncovertebral joint osteoarthritis. There is mild bilateral facet joint osteoarthritis. There is no neural foraminal stenosis. There is mild central c anal stenosis. IMPRESSION: 1. Severe lower cervical spondylosis. 2. Cervical kyphosis. Reviewed, dictated and finalized at location A.
== END ==
PROVIDERS: PCP Family Medicine; Visit Provider Nurse Practitioner Gerontology
DX: M48.061 Spinal stenosis, lumbar region without neurogenic claudication (principal); M47.813 Spondylosis without myelopathy or radiculopathy, cervicothoracic region; M48.03 Spinal stenosis, cervicothoracic region; M40.202 Unspecified kyphosis, cervical region
CPT/HCPCS: 72141

== ENCOUNTER → 2022-02-18 14:29 | Outpatient (CLI) | payer BC, SELFPAY ==
--- NOTE | ~2022-02-18 | MR_ITS ---
EXAMINATION: MR brain/brain stem wo con DATE: 02/18/2022 15:40 INDICATION: Repeated falls. TECHNIQUE: Magnetic resonance imaging (MRI) of the brain and brainstem was performed without intraven ous contrast. COMPARISON: Sinuses CT 02/16/2021 FINDINGS: There is no intracranial hemorrhage, acute infarction, or abnormal intracranial mass lesion . The ventricles are normal in size. The paranasal sinuses are clear. The orbits are normal. Again se en are bilateral otomastoid effusions. IMPRESSION: 1. Normal brain. 2. Bilateral otomastoid effusions again seen. Reviewed, dictated and finalized at location B.
== END ==
PROVIDERS: PCP Family Medicine; Visit Provider Nurse Practitioner Family
DX: R29.6 Repeated falls (principal)
CPT/HCPCS: 70551

== ENCOUNTER → 2022-03-04 14:47 | Outpatient (CLI) | payer BC, SELFPAY ==
--- NOTE | ~2022-03-04 | US_ITS ---
EXAMINATION:US venous doppler LE BI INDICATION:Localized edema. TECHNIQUE: Multiple grayscale, color flow and Doppler images of the right and left lower extremity de ep venous systems were obtained and reviewed. COMPARISON:No prior studies FINDINGS: The common femoral, superficial femoral and popliteal veins demonstrate normal respiratory variation, augmentation and compressibility. Color flow is also seen within the posterior tibial, pe roneal, greater saphenous and profunda veins. IMPRESSION: 1: No lower extremity deep venous thrombosis. Reviewed, dictated and finalized at location A.
== END ==
PROVIDERS: PCP Family Medicine; Visit Provider Nurse Practitioner Family
DX: R60.0 Localized edema (principal)
CPT/HCPCS: 93970

== ENCOUNTER → 2022-04-22 16:43 | Outpatient (CLI) | payer BC, SELFPAY ==
--- NOTE | ~2022-04-22 | MR_ITS ---
EXAMINATION: MR thoracic spine wo con DATE: 04/22/2022 17:13 INDICATION: Thoracic radiculopathy. Mid to low back pain. TECHNIQUE: Magnetic resonance imaging (MRI) of the thoracic spine was performed without intravenous c ontrast. Sagittal localizer T1-weighted FSE of the cervical spine was obtained. Thoracic spine sequen daniel included sagittal T2-weighted FSE, sagittal T1-weighted FSE, sagittal T2-weighted FS FSE, and axi al T2-weighted FSE. COMPARISON: Chest 2 views 07/18/2021 FINDINGS: There is 4 degrees dextrocurvature of thoracic spine. There is mild chronic anterior wedgin g of C7 vertebral body. There is a Schmorl's node of inferior endplate of T7. Intervertebral disc hei ghts are normal. There is multilevel mild facet joint osteoarthritis. At T2-T3 and T8-T9, there is mi ld bilateral neural foraminal stenosis. At T7-T8, there is a left central extrusion with mild central canal stenosis. The spinal cord signal intensity is normal. IMPRESSION: 1. Mild thoracic spondylosis. Reviewed, dictated and finalized at location A.
== END ==
PROVIDERS: PCP Family Medicine; Visit Provider Pain Medicine Pain Medicine
DX: M47.24 Other spondylosis with radiculopathy, thoracic region (principal)
CPT/HCPCS: 72146

== ENCOUNTER 2022-07-14 08:06 | Outpatient (CLI) | payer BC, SELFPAY ==
[2022-07-14 09:06] LABS: Alanine Aminotransferase 78 U/L (6-50); Albumin Level 4.7 g/dL (3.5-5.1); Alkaline Phosphatase 87 U/L (38-126); Anion Gap 10 mmol/L (8-16); Aspartate Amino Transferase 69 U/L (17-59); Bilirubin,Total 0.8 mg/dL (0.2-1.3); Blood Urea Nitrogen 13 mg/dL (9-20); Calcium 9.3 mg/dL (8.4-10.2); Carbon Dioxide 31 mmol/L (22-30); Chloride 101 mmol/L (98-107); Estimated Glomerular Filt Rate > 60; Glucose 105 mg/dL (65-110); Potassium 4.7 mmol/L (3.4-5.0); Sodium 142 mmol/L (137-145)
== END 2022-07-14 08:07 | disposition home or self-care (01) ==
PROVIDERS: PCP Family Medicine; Visit Provider Pain Medicine Pain Medicine
DX: Z01.818 Encounter for other preprocedural examination (principal)
CPT/HCPCS: 36415; 80053

== ENCOUNTER 2022-08-10 07:29 | Outpatient (CLI) | payer BC, SELFPAY ==
[2022-08-10 08:15] LABS: Hematocrit 44.9 % (42.0-52.0); Hemoglobin 15.1 g/dL (14.0-18.0); Mean Corpuscular HGB Conc 33.6 g/dl (32-36); Mean Corpuscular Hemoglobin 30.5 pg (26-34); Mean Corpuscular Volume 90.7 fl (80-100); Mean Platelet Volume 9.5 fl (7.4-10.4); Platelet Count Result 265 k/mm3 (150-375); Red Blood Count 4.95 M/mm3 (4.6-6.20); Red Cell Distribution Width 15.5 % (11.5-14.5); White Blood Count 8.3 K/mm3 (4.5-10.0)
== END 2022-08-10 07:30 | disposition home or self-care (01) ==
PROVIDERS: PCP Family Medicine; Visit Provider Internal Medicine Hematology & Oncology
DX: D75.1 Secondary polycythemia (principal); D72.820 Lymphocytosis (symptomatic)
CPT/HCPCS: 36415; 85027; 88184

== ENCOUNTER 2022-08-10 07:36 | Outpatient (CLI) | payer BC, SELFPAY ==
[2022-08-10 08:57] LABS: Alanine Aminotransferase 38 U/L (6-50); Albumin Level 4.7 g/dL (3.5-5.1); Alkaline Phosphatase 70 U/L (38-126); Aspartate Amino Transferase 34 U/L (17-59); Bilirubin,Total 0.6 mg/dL (0.2-1.3)
[2022-08-10 09:36] LABS: Hepatitis B Surface Antigen Negative (Negative)
[2022-08-10 09:42] LABS: HAV RESULT Negative (Negative); Hepatitis B Core IgM Result Negative (Negative)
[2022-08-10 09:45] LABS: Iron 42 ug/dL (49-181)
[2022-08-10 09:53] LABS: Hepatitis C Virus Antibody Negative (Negative)
[2022-08-10 10:07] LABS: Percent Iron Saturation 10 % (20-50)
[2022-08-13 15:32] LABS: GGT 78 U/L (3-95)
== END 2022-08-10 07:37 | disposition home or self-care (01) ==
PROVIDERS: PCP Family Medicine; Visit Provider Nurse Practitioner
DX: R74.01 Elevation of levels of liver transaminase levels (principal)
CPT/HCPCS: 36415; 80074; 80076; 82977; 83540; 83550; 86038

== ENCOUNTER → 2022-08-14 07:38 | Outpatient (CLI) | payer BC, SELFPAY ==
--- NOTE | ~2022-08-14 | US_ITS ---
US right upper quadrant DATE: 08/14/2022 08:15 INDICATION: Elevated liver enzymes TECHNIQUE: Real-time imaging of right upper quadrant, Doppler analysis COMPARISON: None FINDINGS: The pancreas is obscured by overlying bowel gas. Hepatic steatosis. No hepatic space-occupying mass lesion is evident. Normal hepatopedal portal venou s flow direction. No gallstones, gallbladder wall thickening or pericholecystic fluid collection. Negative sonographic Booker's sign. Common bile duct measures 4 mm, normal. IMPRESSION: Pancreas is obscured by bowel gas Negative gallbladder Reviewed, dictated and finalized at Location A. Reviewed, dictated and finalized at location B. 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
== END ==
PROVIDERS: PCP Family Medicine; Visit Provider Nurse Practitioner
DX: R74.01 Elevation of levels of liver transaminase levels (principal)
CPT/HCPCS: 76705

== ENCOUNTER 2022-08-17 16:55 | Outpatient (CLI) | payer BC, SELFPAY ==
[2022-08-17 17:36] LABS: Basophils Absolute Auto 0.1 K/mm3 (0.0-0.1); Basophils Percent Auto 0.9 % (0.2-1.2); Eosinophils Absolute Auto 0.4 K/mm3 (0-0.3); Eosinophils Percent Auto 3.8 % (0-4.4); Hematocrit 46.7 % (42.0-52.0); Hemoglobin 15.8 g/dL (14.0-18.0); Immature Granulocyte Absolute 0.02 K/mm3 (0.00-0.031); Immature Granulocyte Percent A 0.2 % (0-0.5); Lymphocytes Absolute Auto 3.82 K/mm3 (0.9-3.2); Mean Corpuscular HGB Conc 33.8 g/dl (32-36); Mean Corpuscular Hemoglobin 30.9 pg (26-34); Mean Corpuscular Volume 91.2 fl (80-100); Mean Platelet Volume 9.8 fl (7.4-10.4); Monocytes Absolute Auto 1.3 K/mm3 (0.1-0.6); Monocytes Percent Auto 12.3 % (2.6-8.5); Neutrophils Percent Auto 46.8 % (45.5-73.1); Platelet Count Result 298 k/mm3 (150-375); Red Blood Count 5.12 M/mm3 (4.6-6.20); White Blood Count 10.6 K/mm3 (4.5-10.0)
[2022-08-17 17:37] LABS: Appearance Urine Clear (Clear); Bilirubin Urine Negative (Negative); Blood Urine Negative (Negative); Color Urine Yellow (Yellow); Glucose Urine UA Negative (Negative); Ketones Urine Negative (Negative); Leukocyte Esterase Ur Negative LEU/UL (Negative); Nitrate Urine Negative (Negative); Protein Urine Negative (Negative); Urobilinogen Urine 0.2 mg/dL (<2.0)
[2022-08-17 17:53] LABS: Anion Gap 7 mmol/L (8-16); Blood Urea Nitrogen 14 mg/dL (9-20); Calcium 8.8 mg/dL (8.4-10.2); Carbon Dioxide 31 mmol/L (22-30); Chloride 94 mmol/L (98-107); Estimated Glomerular Filt Rate > 60; Glucose 94 mg/dL (65-110); Potassium 4.1 mmol/L (3.4-5.0); Sodium 132 mmol/L (137-145)
[2022-08-17 20:47] LABS: Add Urine Microscopic? NO
== END 2022-08-17 16:56 | disposition home or self-care (01) ==
PROVIDERS: PCP Family Medicine
DX: Z01.818 Encounter for other preprocedural examination (principal)
CPT/HCPCS: 36415; 80048; 81003; 85025

== ENCOUNTER 2022-08-18 07:55 | Outpatient (CLI) | payer BC, SELFPAY ==
--- NOTE | 2022-08-18 | ECG_ITS ---
Measurements Intervals [place] Rate: 73 P: 42 LA: 149 QRS: 89 QRSD: 101 T: 73 QT: 358 QTc: 397 Interpretive Statements SINUS RHYTHM COMPARED TO ECG 07/18/2021 15:59:32 NO SIGNIFICANT CHANGES Electronically Signed On 08-18-2022 16:27:29 RECONDITIONER by Steff Moreno M.D.
== END 2022-08-18 07:56 | disposition home or self-care (01) ==
LOC: ANHLAB 07:57
PROVIDERS: PCP Family Medicine
DX: Z01.818 Encounter for other preprocedural examination (principal)
CPT/HCPCS: 93005

== ENCOUNTER 2022-11-06 06:41 | Outpatient (CLI) | payer BC, SELFPAY ==
[2022-11-06 07:30] LABS: Basophils Absolute Auto 0.1 K/mm3 (0.0-0.1); Basophils Percent Auto 1.1 % (0.2-1.2); Eosinophils Absolute Auto 0.3 K/mm3 (0-0.3); Hematocrit 50.3 % (42.0-52.0); Hemoglobin 16.7 g/dL (14.0-18.0); Immature Granulocyte Absolute 0.04 K/mm3 (0.00-0.031); Immature Granulocyte Percent A 0.4 % (0-0.5); Lymphocytes Absolute Auto 2.47 K/mm3 (0.9-3.2); Lymphocytes Percent Auto 26.7 % (18.3-44.2); Mean Corpuscular HGB Conc 33.2 g/dl (32-36); Mean Corpuscular Hemoglobin 30.8 pg (26-34); Mean Corpuscular Volume 92.8 fl (80-100); Mean Platelet Volume 8.8 fl (7.4-10.4); Monocytes Absolute Auto 1.3 K/mm3 (0.1-0.6); Monocytes Percent Auto 14.2 % (2.6-8.5); Neutrophils Percent Auto 54.6 % (45.5-73.1); Platelet Count Result 299 k/mm3 (150-375); Red Blood Count 5.42 M/mm3 (4.6-6.20); White Blood Count 9.2 K/mm3 (4.5-10.0)
[2022-11-06 07:31] LABS: Appearance Urine Clear (Clear); Bacteria Urine None Seen /hpf; Bilirubin Urine Negative (Negative); Blood Urine Negative (Negative); Color Urine Yellow (Yellow); Glucose Urine UA Negative (Negative); Ketones Urine Trace mg/dL (Negative); Leukocyte Esterase Ur Negative LEU/UL (NEGATIVE); Nitrate Urine Negative (Negative); Non Pathogenic Casts 0-2; Protein Urine Trace mg/dL (Negative); RBC Urine 0-2 /hpf (0-2); Specific Grav Ur 1.019 (1.001-1.035); Squamous Epithelial Cell Urine None seen /hpf (Few); WBC Urine 0-5 /hpf (0-3)
[2022-11-06 07:44] LABS: Add Urine Microscopic? YES
[2022-11-06 09:49] LABS: Iron 110 ug/dL (49-181)
[2022-11-06 09:53] LABS: Alanine Aminotransferase 44 U/L (6-50); Albumin Level 4.4 g/dL (3.5-5.1); Alkaline Phosphatase 93 U/L (38-126); Anion Gap 7 mmol/L (8-16); Aspartate Amino Transferase 40 U/L (17-59); Bilirubin,Total 0.6 mg/dL (0.2-1.3); Blood Urea Nitrogen 12 mg/dL (9-20); Calcium 8.7 mg/dL (8.4-10.2); Carbon Dioxide 28 mmol/L (22-30); Chloride 101 mmol/L (98-107); Cholesterol 228 mg/dL (0-200); Estimated Glomerular Filt Rate > 60; Glucose 110 mg/dL (65-110); HDL Direct 28 mg/dL; Potassium 4.5 mmol/L (3.4-5.0); Sodium 136 mmol/L (137-145); Triglycerides 367 mg/dL (<150)
[2022-11-06 10:04] LABS: LDL Cholesterol Direct 123 mg/dL
[2022-11-06 10:12] LABS: Percent Iron Saturation 26 % (20-50)
[2022-11-06 10:25] LABS: Prostate Specific Antigen 0.5 ng/mL (< OR = 4.0)
[2022-11-06 11:33] LABS: Hemoglobin A1C 5.5 % (<5.7)
[2022-11-09 13:03] LABS: Insulin Level Total 11.8 uIU/mL (<=19.6)
[2022-11-11 06:09] LABS: GGT 101 U/L (3-95)
[2022-11-13 15:18] LABS: Testosterone Free 61.4 pg/mL (35.0-155.0); Testosterone Total 266 ng/dL (250-1100)
== END 2022-11-06 06:42 | disposition home or self-care (01) ==
PROVIDERS: PCP Family Medicine; Referring Provider Internal Medicine Endocrinology, Diabetes & Metabolism; Visit Provider Family Medicine
DX: E78.2 Mixed hyperlipidemia (principal); R73.01 Impaired fasting glucose; R79.89 Other specified abnormal findings of blood chemistry; Z12.5 Encounter for screening for malignant neoplasm of prostate; I10 Essential (primary) hypertension; D75.1 Secondary polycythemia; R74.8 Abnormal levels of other serum enzymes; R73.03 Prediabetes; L81.8 Other specified disorders of pigmentation
CPT/HCPCS: 36415; 80053; 80061; 81001; 82728; 82977; 83036; 83525; 83540; 83550; 84153; 84402; 84403; 84443; 85025; G0103